=== PATIENT | female | born 1990 | race Caucasian/White ===

== ENCOUNTER 2017-10-21 16:23 | Emergency (ER) | payer BC ==
[~2017-10-21] VITALS: Ht 175.3 cm; Wt 80.0 kg
[2017-10-21 16:30] VITALS: BP 167/95; PULSE 121; RESP 20; TEMP 98.5; O2SAT 97
[2017-10-21] MEDS ORDERED: SODIUM CHLORIDE 0.9% FLUSH 10 ML FLUSH IV FLUSH PRN (18:00)
[2017-10-21] MEDS ORDERED: MORPHINE SULFATE 4 MG/ML INJ IV PUSH ONE (18:00)
[2017-10-21] MEDS ORDERED: SODIUM CHLOR 0.9% 1000 ML INJ 1,000 ML IV ONE (18:00)
[2017-10-21] MEDS ORDERED: ONDANSETRON HCL 4 MG/2 ML VIAL IVP ONE (18:00)
--- NOTE | 2017-10-21 18:01 | PD ---
HPI Chief Complaint: GI Complaint Time Seen by Provider: 17:40 Travel History International Travel<30 days: No Contact w/Intl Traveler<30days: No Traveled to known affect area: No History of Present Illness HPI Patient is a 27-year-old female presents to emergency room with complaints of diarrhea. Patient reports that she has been having diarrhea which has been nonstop for the past 2-3 days. Patient reports that she has been having foul- smelling runny diarrhea every 4-5 hours. 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 difficile, patient reports concerns for possible C. difficile. Patient reports her abdominal pain is mild to moderate in nature, is also nonspecific in nature, reports the pain is more cramping pain. Patient denies any fever chills, reports nausea with vomiting. Patient has been able to drink fluids, has not eaten any solids for the past 3 days. Patient denies any sick contacts other than her sick patient's in the emergency room. Patient with no travels outside of this country. Patient with no cough or congestion, no other complaints at this time. Patient denies dysuria, urinary urgency or frequency. PFSH Past Medical History Medical History: Denies Significant Hx ?: Not LMP: 10/11/17 Past Surgical History Thoracic Surgery: Yes (THORACIC PECTIS SURGERY ) Family History Family History: Negative Social History Alcohol Use: Yes Tobacco Use: No Substance Use: No Allergies-Medications (Allergen,Severity, Reaction): Coded Allergies: No Known Allergies (Unverified , 10/21/17) Reported Meds & Prescriptions Reported Meds & Active Scripts Active No Active Prescriptions or Reported Medications Review of Systems General / Constitutional: No: Fever, Chills Eyes: No: Visual changes HENT: No: Headaches Cardiovascular: No: Chest Pain or Discomfort Respiratory: No: Shortness of Breath Gastrointestinal: Positive: Nausea, Vomiting, Diarrhea, Abdominal Pain Genitourinary: No: Urgency, Frequency, Dysuria Musculoskeletal: No: Pain Skin: No Rash Neurologic: No: Weakness Psychiatric: No: Depression Endocrine: No: Polydipsia Hematologic/Lymphatic: No: Easy Bruising Physical Exam Narrative GENERAL: mild distress SKIN: Focused skin assessment warm/dry. HEAD: Atraumatic. Normocephalic. EYES: Pupils equal and round. No scleral icterus. No injection or drainage. ENT: No nasal bleeding or discharge. Mucous membranes pink and moist. NECK: Trachea midline. No JVD. CARDIOVASCULAR: Regular rate and rhythm. No murmur appreciated. RESPIRATORY: No accessory muscle use. Clear to auscultation. Breath sounds equal bilaterally. GASTROINTESTINAL: Abdomen soft, non-tender, nondistended. Hepatic and splenic margins not palpable. No rebound or guarding on exam MUSCULOSKELETAL: No obvious deformities. No clubbing. No cyanosis. No edema. NEUROLOGICAL: Awake and alert. No obvious cranial nerve deficits. Motor grossly within normal limits. Normal speech. PSYCHIATRIC: Appropriate mood and affect; insight and judgment normal. Data Data Last Documented VS Vital Signs Date Time Temp Pulse Resp B/P (MAP) Pulse Ox O2 Delivery O2 Flow Rate FiO2 10/21/17 20:21 114 16 131/75 (93) 99 Room Air 10/21/17 16:30 98.5 Orders Orders Complete Blood Count With Diff (10/21/17 17:53) Comprehensive Metabolic Panel (10/21/17 17:53) Lipase (10/21/17 17:53) Urinalysis - C+S If Indicated (10/21/17 17:53) Iv Access Insert/Monitor (10/21/17 17:53) Ecg Monitoring (10/21/17 17:53) Oximetry (10/21/17 17:53) NPO (10/21/17 17:53) Morphine Inj (Morphine Inj) (10/21/17 18:00) Ondansetron Inj (Zofran Inj) (10/21/17 18:00) Sodium Chlor 0.9% 1000 Ml Inj (Ns 1000 M (10/21/17 17:53) Sodium Chloride 0.9% Flush (Ns Flush) (10/21/17 18:00) Ed Urine Pregnancytest Poc (10/21/17 17:53) C Diff Toxin Pcr (10/21/17 17:53) Sodium Chlor 0.9% 1000 Ml Inj (Ns 1000 M (10/21/17 18:00) Potassium Chloride (Kcl) (10/21/17 20:45) Labs Laboratory Tests Test 10/21/17 18:10 10/21/17 18:15 White Blood Count 5.6 TH/MM3 Red Blood Count 5.07 MIL/MM3 Hemoglobin 14.5 GM/DL Hematocrit 44.7 % Mean Corpuscular Volume 88.2 FL Mean Corpuscular Hemoglobin 28.6 PG Mean Corpuscular Hemoglobin Concent 32.4 % Red Cell Distribution Width 13.8 % Platelet Count 232 TH/MM3 Mean Platelet Volume 9.8 FL Neutrophils (%) (Auto) 79.0 % Lymphocytes (%) (Auto) 18.6 % Monocytes (%) (Auto) 2.0 % Eosinophils (%) (Auto) 0.1 % Basophils (%) (Auto) 0.3 % Neutrophils # (Auto) 4.4 TH/MM3 Lymphocytes # (Auto) 1.0 TH/MM3 Monocytes # (Auto) 0.1 TH/MM3 Eosinophils # (Auto) 0.0 TH/MM3 Basophils # (Auto) 0.0 TH/MM3 CBC Comment DIFF FINAL Differential Comment Urine Color YELLOW Urine Turbidity HAZY Urine pH 6.0 Urine Specific [place] 1.036 Urine Protein 100 mg/dL Urine Glucose (UA) NEG mg/dL Urine Ketones 10 mg/dL Urine Occult Blood SMALL Urine Nitrite NEG Urine Bilirubin NEG Urine Urobilinogen 2.0 MG/DL Urine Leukocyte Esterase NEG Urine RBC 3 /hpf Urine WBC 2 /hpf Urine Squamous Epithelial Cells 5 /hpf Urine Mucus MANY /lpf Microscopic Urinalysis Comment CULT NOT INDICATED Blood Urea Nitrogen 15 MG/DL Creatinine 1.03 MG/DL Random Glucose 92 MG/DL Total Protein 8.4 GM/DL Albumin 3.8 GM/DL Calcium Level 8.7 MG/DL Alkaline Phosphatase 91 U/L Aspartate Amino Transf (AST/SGOT) 27 U/L Alanine Aminotransferase (ALT/SGPT) 22 U/L Total Bilirubin 0.4 MG/DL Sodium Level 136 MEQ/L Potassium Level 3.3 MEQ/L Chloride Level 105 MEQ/L Carbon Dioxide Level 20.0 MEQ/L Anion Gap 11 MEQ/L Estimat Glomerular Filtration Rate 63 ML/MIN Lipase 128 U/L Stool C. difficile Toxin (PCR) NEGATIVE Stl C. difficile Toxin Epiderm 027 PRESUMPTIVE NEGATIVE MDM Medical Decision Making Medical Screen Exam Complete: Yes Emergency Medical Condition: Yes Medical Record Reviewed: Yes Interpretation(s) Vital Signs Date Time Temp Pulse Resp B/P (MAP) Pulse Ox O2 Delivery O2 Flow Rate FiO2 18 16:30 98.5 121 20 167/95 (853) 97 Differential Diagnosis C. difficile colitis, gastroenteritis, gastritis, gastric ulcer, cholecystitis, electrolyte abnormalities Narrative Course 27-year-old female presents to emergency room with complaints of nausea vomiting and diarrhea which has been ongoing for the past 3 days. 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 Patient presents with n/v/d and concerns for c.diff. During the course of the patients emergency department visit, the patients history, examination, and differential diagnosis were reviewed with the patient. The patient was placed on a threat monitoring analyst with oximetry and frequent blood pressure monitoring. The patient had an IV access obtained and blood work sent for analysis. The patient was initially provided IV fluids, IV morphine as well as Zofran The patients laboratory studies were reviewed and remarkable for: CBC & BMP Diagram 10/21/17 18:10 Total Protein 8.4 H, Albumin 3.8, Calcium Level 8.7, Alkaline Phosphatase 91, Aspartate Amino Transf (AST/SGOT) 27, Alanine Aminotransferase (ALT/SGPT) 22, Total Bilirubin 0.4 C. difficile negative Patient reevaluated, patient feeling much better at this time, abdomen soft, nontender, nondistended, no peritoneal signs. All labs and all studies reviewed patient in detail including all incidental findings. Patient did tolerate a p.o. trial. Patient with most likely gastroenteritis at this time, signs and symptoms of an acute abdomen were reviewed with patient in detail. Patient will return to emergency room as needed. Patient will follow-up with primary care doctor and return to resume as needed. Diagnosis Primary Impression: Nausea vomiting and diarrhea Additional Impression: Gastroenteritis Patient Instructions: General Instructions Additional Instructions: Please provide patient with a copy of their lab work at discharge Please follow up with your primary care doctor in 2-3 days Return to the ER if symptoms worsen or progress Return to the ER as needed Please drink plenty of fluids Med/Other Pt SpecificInfo: Prescription(s) given Scripts Ondansetron (Zofran) 4 Mg Tab 4 MG PO Q6HR Y for NAUSEA OR VOMITING, #20 TAB 0 Refills Prov: Leana Boykin DO 10/21/17 Disposition: 01 DISCHARGE HOME Condition: Stable Leana Boykin DO Oct 21, 2017 18:01
[2017-10-21] MEDS: SODIUM CHLOR 0.9% 1000 ML INJ 1,000 ML IV SCH ×2 (18:17→18:40)
[2017-10-21 18:49] LABS: AUTOMATED NEUTROPHIL # 4.4 TH/MM3 (1.8-7.7); BASOPHIL % 0.3 % (0.0-2.0); EOSINOPHIL % 0.1 % (0.0-4.0); HEMATOCRIT 44.7 % (35.0-46.0); HEMOGLOBIN 14.5 GM/DL (11.6-15.3); LYMPH % 18.6 % (9.0-44.0); MEAN CELL VOLUME 88.2 FL (80.0-100.0); MEAN CORPUSCULAR HEMOGLOBIN 28.6 PG (27.0-34.0); MEAN CORPUSCULAR HGB CONC 32.4 % (32.0-36.0); MEAN PLATELET VOLUME 9.8 FL (7.0-11.0); MONOCYTE # 0.1 TH/MM3 (0-0.9); PLATELET COUNT 232 TH/MM3 (150-450); RED BLOOD COUNT 5.07 MIL/MM3 (4.00-5.30); RED CELL DISTRIBUTION WIDTH 13.8 % (11.6-17.2); WHITE BLOOD COUNT 5.6 TH/MM3 (4.0-11.0)
[2017-10-21 18:51] LABS: BLOOD, URINE SMALL (NEG); GLUCOSE,URINE NEG (NEG); KETONE, URINE 10 mg/dL (NEG); MUCUS URINE MANY /lpf (OCC); NITRITE,URINE NEG (NEG); SQUAMOUS EPITHELIAL CELL URINE 5 /hpf (0-5); URINE COLOR YELLOW (YELLW/STRAW); URINE LEUKOCYTE ESTERASE NEG (NEG)
[2017-10-21 18:58] LABS: ALBUMIN 3.8 GM/DL (3.4-5.0); AST (GOT) 27 U/L (15-37); BLOOD UREA NITROGEN 15 MG/DL (7-18); CALCIUM 8.7 MG/DL (8.5-10.1); CHLORIDE 105 MEQ/L (98-107); CREATININE 1.03 MG/DL (0.50-1.00); GLOMERULAR FILTRATION RATE 63 ML/MIN (>89); GLUCOSE,RANDOM 92 MG/DL (74-106); SODIUM (NA) 136 MEQ/L (136-145)
[2017-10-21 18:59] LABS: BILIRUBIN, URINE NEG (NEG)
[2017-10-21 19:00] LABS: ALT (GPT) 22 U/L (10-53)
[2017-10-21 19:02] LABS: ALKALINE PHOSPHATASE 91 U/L (45-117); TOTAL BILIRUBIN ADULT 0.4 MG/DL (0.2-1.0); TOTAL PROTEIN 8.4 GM/DL (6.4-8.2)
[2017-10-21 20:21] VITALS: BP 131/75; PULSE 114; RESP 16; O2SAT 99
[2017-10-21] MEDS ORDERED: POTASSIUM CHLORIDE 20 MEQ CONTROLLED RELEASE TAB PO ONE (20:45)
[2017-10-21] MEDS ORDERED: ZOFR4TAB PO (20:52)
[2017-10-21] MEDS ORDERED: ONDANSETRON HCL 4 MG/2 ML VIAL IV PUSH ONE (21:00)
== END 2017-10-21 21:18 | disposition home or self-care (01) ==
LOC: NEPD 16:23
DX: K52.9 Noninfective gastroenteritis and colitis, unspecified (principal)
CPT/HCPCS: 80053; 81001; 83690; 84703; 85025; 87493; 96361; 96374; 96375; 96376; 99284; J2270; J2405; J7030